=== PATIENT | male | born 1955 | race African-American/Black ===

== ENCOUNTER 2021-01-12 09:43 | Emergency (ER) | payer MEDICARE, OTHER ==
[~2021-01-12] VITALS: Ht 185.4 cm; Wt 68.0 kg
[2021-01-12 11:00] VITALS: BP 164/113
== END 2021-01-12 11:07 | disposition home or self-care (01) ==
LOC: ER 09:43
DX: S60.221A Contusion of right hand, initial encounter (principal); F17.210 Nicotine dependence, cigarettes, uncomplicated; W51.XXXA Accidental striking against or bumped into by another person, initial encounter; Y93.89 Activity, other specified; Y92.89 Other specified places as the place of occurrence of the external cause; Y99.8 Other external cause status
CPT/HCPCS: 73110; 73120